=== PATIENT | female | born 1975 | race Caucasian/White ===

== ENCOUNTER → 2024-01-22 06:40 | Day surgery (SDC) | payer OTHER, SELFPAY | LOC: GI 06:40 | PROVIDERS: ATTENDING PHYSICIAN Internal Medicine Gastroenterology | DX: Z12.11 Encounter for screening for malignant neoplasm of colon (principal) | CPT/HCPCS: G0121 ==

== ENCOUNTER 2024-01-31 10:01 | Emergency (ER) | payer OTHER, SELFPAY ==
[2024-01-31 10:25] VITALS: BP 106/73
[2024-01-31 11:18] VITALS: BMI 24.4
--- NOTE | 2024-01-31 11:24 | ED.GENMED ---
History of Present Illness
General
Chief Complaint: Throat Problem
Source: patient
Exam Limitations: none
Time Seen by Provider: 01/31/24 11:15
Travel History
Have you had any contact with someone who has COVID-19?: No
Do you have any symptoms of coronavirus? Fever > 100 degrees, chills, cough, shortness of breath, sore throat, loss of taste or smell, muscle aches, or headache?: No
History of Present Illness
History of Present Illness:
48-year-old otherwise healthy female presents complaining of throat irritation. She took a doxycycline tablet yesterday at 1 PM and right away felt as though it got stuck on the left side of her throat. Since then she has had a foreign body
sensation. She denies any difficulty breathing. She has been able to eat and drink without anything coming up but still notes irritation when she eats solid food. She feels as though there is still a pill in her throat. No other complaints at
this time.
Past History
Past History
ED Past Medical History: None
ED Past Surgical History: None
Phy Exam
Physical Exam
Physical Exam:
General: Well-appearing female no acute respiratory distress
HEENT: Normocephalic atraumatic posterior pharynx without erythema or exudate neck is supple no adenopathy, trismus, or drooling
Heart: Regular rate and rhythm no murmurs
Lungs clear without stridor.
Course
Vital Signs
Initial and Last Documented VS:
Initial Vital Signs
Temp Pulse Resp BP Pulse Ox
98.3 F 67 18 106/73 98
01/31/24 10:25 01/31/24 10:25 01/31/24 10:25 01/31/24 10:01/31/24 10:25
Last Documented Vital Signs
Temp Pulse Resp BP Pulse Ox
98.3 F 67 18 106/73 98
01/31/24 10:25 01/31/24 10:25 01/31/24 10:25 01/31/24 10:25 01/31/24 10:25
MDM/Problems Addressed
Differential Diagnosis Includes:
Foreign body sensation in throat. Patient able to tolerate solids and liquids no respiratory distress. Explained potential situations. If it is lodged in the side of her throat and will dissolve. However it could have scratched on the way down
and causing edema and a foreign body sensation. At this point no need for urgent scope. She understood this. Stable for discharge. 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
*Critical Care Note
Total Time (30-74mins, 75-104mins- exclusive of procedures): Not Applicable
ED Attending Note
-
Portions of this chart may have been created with voice recognition software.� Occasional wrong word or��sound alike� substitutions may have occurred due to the inherent limitations of voice recognition software.
Discharge Plan
Departure
Patient Disposition: Home (Routine Discharge)
Date of Disposition: 01/31/24
Time of Disposition: 11:28
Patient with high blood pressure during this ER visit?: No
Discharge Problem:
Foreign body sensation in throat
Instructions: Swallowed Objects, Adult (DC)
Referrals:
NONE,* [Family Provider] -
Activity Restrictions/Additional Instructions:
Please return here for any worsening symptoms including pain difficulty breathing or vomiting. Continue drinking plenty clear liquids. Follow-up with ENT otherwise
Interventions
Interventions:
*Risk Screen - Suicide Last Done: 01/31/24 11:18
*General Assessment Last Done: 01/31/24 11:18
*Neglect/Abuse Screening Last Done: 01/31/24 11:18
*ED COVID-19 Vaccine History Last Done: 01/31/24 11:18
ED-EENT Assessment Last Done: 01/31/24 11:18
ED- Pulmonary Assessment Last Done: 01/31/24 11:18
== END 2024-01-31 11:39 | disposition home or self-care (01) ==
LOC: EMR 10:01
PROVIDERS: EMERGENCY PHYSICIAN Emergency Medicine
DX: R09.A2 Foreign body sensation, throat (principal)
CPT/HCPCS: 99282

== ENCOUNTER → 2024-12-16 13:30 | Outpatient (REF) | payer OTHER, SELFPAY | LOC: WDC 13:30 | PROVIDERS: ATTENDING PHYSICIAN Nurse Practitioner Family | DX: Z12.31 Encounter for screening mammogram for malignant neoplasm of breast (principal) | CPT/HCPCS: 77063; 77067 ==